=== PATIENT | female | born 1955 | race Caucasian/White ===

== ENCOUNTER 2018-07-02 15:00 | Outpatient (CLI) | payer OTHER | END 2018-07-02 15:01 | disposition home or self-care (01) | LOC: DTY/OP 15:00 | PROVIDERS: ATTEND Surgery | DX: E11.9 Type 2 diabetes mellitus without complications (principal); E78.5 Hyperlipidemia, unspecified; I10 Essential (primary) hypertension | CPT/HCPCS: 97802 ==

== ENCOUNTER 2018-08-13 16:15 | Inpatient (IN) | payer BC ==
[2018-08-13 16:57] VITALS: BMI 41.5
[2018-08-26] MEDS ORDERED: Heparin 5,000 UNITS/ML VIAL ONE (13:08)
[2018-08-26] MEDS ORDERED: CEFAZOLIN 2 GM/50 ML BAG ONE (13:08)
[2018-08-26] MEDS ORDERED: Bupivacaine/Epinephrine 0.25% 30 ML VIAL ONE (13:43)
[2018-08-26] MEDS ORDERED: Fentanyl 100 MCG/2 ML VIAL ONE ×3 (13:44→16:37)
[2018-08-26] MEDS ORDERED: Famotidine/PF 20 mg/2ml Vial ONE (13:45)
[2018-08-26] MEDS ORDERED: Promethazine HCl 25 MG/ML VIAL SLOW IVP PRN (15:15)
[2018-08-26] MEDS ORDERED: Ondansetron HCl/PF 4 MG/2 ML Vial IVP PRN (15:15)
[2018-08-26] MEDS ORDERED: Meperidine HCl/PF 25 MG/ML VIAL SLOW IVP PRN (15:15)
[2018-08-26] MEDS ORDERED: fentaNYL Citrate/PF 2,000 MCG in Sodium Chloride 0.9% 60 ML IV PRN ×2 (15:37→16:20)
[2018-08-26] MEDS ORDERED: diphenhydrAMINE 25 MG CAP PO PRN (16:20)
[2018-08-26] MEDS ORDERED: diphenhydrAMINE 50 MG/ML VIAL IM PRN (16:20)
[2018-08-26] MEDS ORDERED: Ondansetron PF 4 MG/2 ML Vial IVP PRN ×2 (16:20→17:32)
[2018-08-26] MEDS ORDERED: Naloxone HCl 0.4 mg/ml Vial IV PRN (16:20)
[2018-08-26] MEDS ORDERED: Zolpidem Tartrate 5 MG TAB PO PRN (16:20)
[2018-08-26] MEDS ORDERED: Promethazine HCl 25 MG/ML VIAL IM PRN ×2 (16:20→17:32)
[2018-08-26] MEDS ORDERED: diphenhydrAMINE 50 MG/ML VIAL IVP PRN ×2 (16:20→17:32)
[2018-08-26] MEDS ORDERED: Communication Order-Pharmacy FS SCH (16:30)
[2018-08-26] MEDS ORDERED: Dextrose 50% Abboject 50 ML SYRINGE SLOW IVP PRN (17:32)
[2018-08-26] MEDS ORDERED: hydrALAZINE 20 MG/ML VIAL SLOW IVP PRN (17:32)
[2018-08-26] MEDS ORDERED: HumaLOG 300 UNITS/3 ML VIAL SC PRN (17:32)
[2018-08-26] MEDS ORDERED: Hydrocodone-Acetamin 15 ML UDCUP PO PRN (17:32)
[2018-08-26] MEDS ORDERED: Dextrose 5% in Water 1,000 ML IV PRN (17:32)
[2018-08-26] MEDS ORDERED: PROPOFOL 200 MG/20 ML VIAL ONE (18:14)
[2018-08-26] MEDS ORDERED: ePHEDrine/0.9% NaCl/PF SYRINGE 50 mg/10 ml ONE (18:14)
[2018-08-26] MEDS ORDERED: Lidocaine 1% PF 5 ML VIAL ONE (18:14)
[2018-08-26] MEDS ORDERED: Glycopyrrolate 0.2 MG/ML 5 ML SYRINGE ONE (18:14)
[2018-08-26] MEDS ORDERED: Metoclopramide HCl 10 MG/2 ML VIAL ONE (18:14)
[2018-08-26] MEDS ORDERED: Ondansetron PF 4 MG/2 ML Vial ONE (18:14)
[2018-08-26] MEDS ORDERED: Ketorolac Tromethamine 30 MG/ML VIAL ONE (18:14)
[2018-08-26] MEDS ORDERED: Acetaminophen 1,000 MG in Premix Bag 1 BAG IVPB SCH ×2 (18:30→20:30)
[2018-08-26] MEDS: Sodium Chloride 0.9% 1,000 ML IV SCH ×2 (18:40→23:30)
[2018-08-26] MEDS ORDERED: Pramipexole Di-HCl 0.25 MG TAB PO SCH (21:00)
[2018-08-26] MEDS ORDERED: Enoxaparin Sodium 40 MG/0.4 ML SYRINGE SC SCH (21:00)
--- NOTE | 2018-08-26 21:12 | OP ---
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 PROCEDURES PERFORMED: 1. Laparoscopic sleeve gastrectomy with [place] staple line reinforcements and 38-[place] bougie. 2. Removal of lap band and subcutaneous port. 3. Esophagogastroduodenoscopy. ANESTHESIA: General. ESTIMATED BLOOD LOSS: 50 mL. COMPLICATIONS: None. FINDINGS: Normal postoperative EGD. DESCRIPTION OF PROCEDURE: The patient was taken to the operating room, laid in supine position on the operating room table. After general anesthetic was obtained, the arms and legs were double strapped to bariatric table. OG tube was used to decompress the stomach. Abdomen was prepped and draped in a sterile fashion. Left subcostal 5 mm Optiview trocar was placed in usual fashion and high-flow pneumoperitoneum was obtained. Left and right abdominal 12 mm ports as well as right subcostal 5 mm port were all placed under direct visualization. A 5 mm incision was made at the xiphoid and Sridhar was used to raise the liver off the GE junction. The short gastrics were taken down to a distance of 5 cm proximal to the pylorus, taken down to the left andrea of the diaphragm. The left andrea, posterior fundus, and angle of His were completely dissected. Tissues over the lap band were cauterized and the lap band unbuckled and able to be removed. The overlay wrap of the fundus over the top of the previous lap band was taken down carefully restoring the upper abdomen to its normal anatomic orientation. OG tube was removed and a 38 bougie was brought in with its tip left in the antrum of the stomach. Multiple loads of the [place] stapling device with [place] staple line reinforcements were used to perform the sleeve. At the first, a green load fired up to a distance of 5 cm proximal to the pylorus, angled up to the incisura. Multiple loads were then fired up along the bougie. Stomach was completely transected at the angle of His. The stomach was removed from the left abdominal incision as was the intraabdominal portion of the lap band. Couple of bleeders on the staple line were clipped using laparoscopic clip device. There was no bleeding. All port sites were infiltrated using local anesthetic and bougie was removed and the EGD scope was passed into esophagus, stomach to the level of duodenum without obstruction. There was no stricture at the incisura or in the upper stomach. No bleeding or air leakage through the staple line. EGD scope was used to decompress the stomach, it was pulled and removed. The Sridhar retractors were removed under direct visualization without bleeding. All port sites were infiltrated using local anesthetic and removed under direct visualization without bleeding. Pneumoperitoneum was let down. The right lower abdominal incision was used to remove the lap band port. The port was removed. The lap band was able to reconstruct on the back table with no missing pieces. The wounds were all irrigated and closed using 4-0 Monocryl and Dermabond. The patient was then returned to Recovery in stable condition. All instrument counts, needle counts, and lap counts were correct. Job ID: [id number]
[2018-08-27] MEDS: Sodium Chloride 0.9% 1,000 ML IV SCH (05:47)
[2018-08-27] MEDS ORDERED: Acetaminophen 1,000 MG in Premix Bag 1 BAG IVPB SCH (06:00)
[2018-08-27 06:48] LABS: #Lymphocytes 1.7 thou/uL (1.20-3.40); #Monocytes 0.7 thou/uL (0.11-0.59); #Neutrophils 15.8 thou/uL (1.40-6.50); %Basophils 0.1 % (0.0-1.0); %Eosinophils 0.2 % (0.0-10.0); %Lymphocytes 9.1 % (21.0-51.0); %Monocytes 3.8 % (0.0-10.0); %Neutrophils 86.8 % (42.0-75.0); Hemoglobin 12.8 g/dL (12.0-16.0); Mean Corpuscular HGB CONC 33.3 g/dL (32.0-36.0); Mean Corpuscular Hemoglobin 28.8 pg (27.0-31.0); Mean Corpuscular Volume 86.6 fL (78.0-98.0); Mean Platelet Volume 7.7 fL (7.4-10.4); Platelet Count 289 thou/uL (130-400); Red Blood Cell (RBC) Count 4.45 mill/uL (4.20-5.40); White Blood Cell (WBC) Count 18.2 thou/uL (4.8-10.8)
[2018-08-27 07:08] LABS: Anion Gap 11 mmol/L (10-20); BUN (Urea Nitrogen) 10 mg/dL (9.8-20.1); Calc. Creatinine Clearance 107 mL/min (70-130); Calcium 8.3 mg/dL (7.8-10.44); Carbon Dioxide 27 mmol/L (23-31); Chloride 102 mmol/L (98-107); Estimated GFR-MDRD 61; Glucose 145 mg/dL (80-115); Potassium 4.1 mmol/L (3.5-5.1); Sodium 136 mmol/L (136-145)
[2018-08-27 08:25] VITALS: BP 96/62; TEMP 98.4
[2018-08-27] MEDS ORDERED: Pantoprazole 40 MG VIAL IVP SCH (09:00)
[2018-08-27] MEDS ORDERED: Oxybutynin ER 5 MG TAB PO SCH (09:00)
--- NOTE | 2018-08-27 14:30 | DIS ---
DATE OF ADMISSION: 08/26/2018 DATE OF DISCHARGE: 08/27/2018 ADMIT DIAGNOSIS: Morbid obesity. DISCHARGE DIAGNOSIS: Morbid obesity. PROCEDURE PERFORMED: Laparoscopic sleeve by Dr. Hanna without complication. CONDITION ON DISCHARGE: Stable. HOSPITAL COURSE: See hospital chart for details of hospitalization. Job ID: [id number]
== END 2018-08-27 11:50 | disposition home or self-care (01) | DRG 621 ==
LOC: SURG A 08-26 11:19 → SURG B 08-26 17:23
PROVIDERS: ADMIT Surgery; ATTEND Surgery
PROC: 0DB64Z3 Excision of Stomach, Percutaneous Endoscopic Approach, Vertical (ICD-10-PCS; principal; 2018-08-26)
PROC: 0DP64CZ Removal of Extraluminal Device from Stomach, Percutaneous Endoscopic Approach (ICD-10-PCS; 2018-08-26)
PROC: 0DJ08ZZ Inspection of Upper Intestinal Tract, Via Natural or Artificial Opening Endoscopic (ICD-10-PCS; 2018-08-26)
DX: E66.01 Morbid (severe) obesity due to excess calories (principal); Z68.41 Body mass index [BMI] 40.0-44.9, adult; I10 Essential (primary) hypertension; E11.9 Type 2 diabetes mellitus without complications; Z79.899 Other long term (current) drug therapy; E78.5 Hyperlipidemia, unspecified; F32.9 Major depressive disorder, single episode, unspecified; E07.9 Disorder of thyroid, unspecified; Q40.0 Congenital hypertrophic pyloric stenosis
CPT/HCPCS: 36415; 36416; 80048; 85025; 88307; 88312; C9113; J0131; J1644; J1650; J1885; J2001; J2405; J2704; J2765; J3010; J7050; S0028

== ENCOUNTER 2018-08-13 16:30 | Outpatient (CLI) | payer BC ==
[2018-08-13 17:37] LABS: #Eosinphils 0.1 thou/uL (0.0-0.7); #Lymphocytes 2.5 thou/uL (1.20-3.40); #Monocytes 0.9 thou/uL (0.11-0.59); #Neutrophils 7.4 thou/uL (1.40-6.50); %Basophils 0.3 % (0.0-1.0); %Eosinophils 1.3 % (0.0-10.0); %Lymphocytes 23.1 % (21.0-51.0); %Monocytes 7.9 % (0.0-10.0); %Neutrophils 67.5 % (42.0-75.0); Hemoglobin 13.9 g/dL (12.0-16.0); Mean Corpuscular HGB CONC 33.5 g/dL (32.0-36.0); Mean Corpuscular Hemoglobin 28.5 pg (27.0-31.0); Mean Platelet Volume 7.5 fL (7.4-10.4); Platelet Count 323 thou/uL (130-400); RBC Distribution Width 12.6 % (11.5-14.5); Red Blood Cell (RBC) Count 4.89 mill/uL (4.20-5.40); White Blood Cell (WBC) Count 10.9 thou/uL (4.8-10.8)
[2018-08-13 18:01] LABS: Hemoglobin A1c 7.7 % (4.0-6.0)
[2018-08-13 18:05] LABS: ALT (SGPT) 24 U/L (8-55); AST (SGOT) 24 U/L (5-34); Albumin 4.1 g/dL (3.4-4.8); Alkaline Phosphatase 65 U/L (40-150); Anion Gap 14 mmol/L (10-20); BUN (Urea Nitrogen) 14 mg/dL (9.8-20.1); Bilirubin, Direct 0.2 mg/dL (0.1-0.3); Bilirubin, Total 0.5 mg/dL (0.2-1.2); Calc. Creatinine Clearance 0 mL/min (70-130); Calcium 10.1 mg/dL (7.8-10.44); Carbon Dioxide 29 mmol/L (23-31); Chloride 96 mmol/L (98-107); Estimated GFR-MDRD 55; Globulin 3.3 g/dL (2.4-3.5); Potassium 3.5 mmol/L (3.5-5.1); Protein, Total 7.4 g/dL (6.0-8.3); Sodium 135 mmol/L (136-145)
[2018-08-13 18:23] LABS: Glucose 118 mg/dL (80-115)
--- NOTE | 2018-08-13 19:46 | RAD ---
TWO VIEWS OF CHEST: 08/13/18 COMPARISON: None. HISTORY: Preoperative patient. FINDINGS: No pneumothorax or pleural fluid. No focal consolidation or alveolar edema. An incompletely imaged la p band is seen in the left upper quadrant. Postsurgical clips in right upper quadrant suggests prior cholecystectomy. IMPRESSION: No acute findings. POS: [facility]
--- NOTE | 2018-08-14 22:37 | EKG ---
Test Reason : Blood Pressure : / mmHG Vent. Rate : 087 BPM Atrial Rate : 087 BPM P-R Int : 158 ms QRS Dur : 094 ms QT Int : 386 ms P-R-T Axes : 039 -45 017 degrees QTc Int : 464 ms Normal sinus rhythm Incomplete right bundle branch block Left anterior fascicular block Minimal voltage criteria for LVH, may be normal variant Abnormal ECG No previous ECGs available Confirmed by TRINA PUENTE, SZena ([id number]) on 08/14/2018 10:36:43 PM Referred By: LUIGI Confirmed By:DR. Barbie MENA MD
== END 2018-08-13 16:31 | disposition home or self-care (01) ==
LOC: LABBT 16:30
PROVIDERS: ATTEND Surgery
DX: Z01.818 Encounter for other preprocedural examination (principal); E66.01 Morbid (severe) obesity due to excess calories
CPT/HCPCS: 71046; 80053; 80076; 83036; 85025; 93005; 93010